=== PATIENT | female | born 1990 | race African-American/Black ===

== ENCOUNTER 2024-05-01 00:49 | Emergency (ER) | payer MEDICARE, MEDICAID, SELFPAY ==
[2024-05-01 00:57] VITALS: BP 166/106; PULSE 92; RESP 16; TEMP 36.7; O2SAT 98; BMI 28.3
[2024-05-01 01:24] LABS: IDNOW Serial# 6674DD1D; Strep A Nucleic Acid Negative (Negative)
[2024-05-01 01:51] LABS: Influenza A PCR NEGATIVE (Negative); Influenza B PCR NEGATIVE (Negative); Resp Syncy Virus RNA Qual PCR NEGATIVE (Negative); SARS COV2 PCR INHOUSE NEGATIVE (Negative)
== END 2024-05-01 03:43 | disposition left against medical advice (07) ==
LOC: HO.ED 03:43
PROVIDERS: Emergency Provider Emergency Medicine
DX: R06.02 Shortness of breath (principal); Z03.818 Encounter for observation for suspected exposure to other biological agents ruled out
CPT/HCPCS: 0241U; 87651; 99281